=== PATIENT | male | born 1995 | race Caucasian/White ===

== ENCOUNTER 2022-11-01 13:36 | Emergency (ER) | payer MEDICAID ==
[~2022-11-01] VITALS: Ht 170.2 cm; Wt 98.0 kg
[2022-11-01 14:16] VITALS: TEMP 98; O2SAT 98
[2022-11-01] MEDS ORDERED: BENZ200C52 MT (17:52)
[2022-11-01 18:02] VITALS: BP 120/80; PULSE 78; RESP 20
== END 2022-11-01 18:28 | disposition home or self-care (01) ==
LOC: ER 13:36
DX: R05.9 Cough, unspecified (principal); Z86.73 Personal history of transient ischemic attack (TIA), and cerebral infarction without residual deficits
CPT/HCPCS: 71045; 99283

== ENCOUNTER 2022-11-03 03:33 | Emergency (ER) | payer BC, MEDICAID ==
[~2022-11-03] VITALS: Ht 170.2 cm; Wt 97.0 kg
[~2022-11-03 03:33] MED LIST: BENZ200C52 MT
[2022-11-03 03:37] VITALS: PULSE 77
[2022-11-03 03:38] VITALS: BP 149/96; RESP 18; TEMP 98.9; O2SAT 97
[2022-11-03 04:05] LABS: BASOPHILS % 0.5 % (0.0-2.0); EOSINOPHILS % 1.8 % (0.0-5.0); HEMATOCRIT. 40.7 % (42.0-52.0); LYMPHOCYTES % 29.1 % (20.0-50.0); MEAN CORPUSCULAR HEMOGLOBIN 28.7 pg (28.0-32.0); MEAN CORPUSCULAR HGB CONC 34.3 g/dL (31.0-37.0); MEAN CORPUSCULAR VOLUME 83.7 fL (80.0-94.0); MEAN PLATELET VOLUME 8.4 fl (7.4-10.4); MONOCYTES % 8.6 % (2.0-8.0); PLATELET 274 x1000/uL (130-400); RED BLOOD CELL COUNT 4.86 mill/uL (4.7-6.1); RED CELL DISTRIBUTION WIDTH 13.8 % (11.6-14.6); WHITE BLOOD COUNT 8.4 x1000/uL (4.5-11.0)
[2022-11-03 04:11] LABS: CHLORIDE 107 mEq/L (98-107); INDEX HEMOLYSI 1 (1-3); INDEX ICTERIC 1 (1-4); INDEX LIPEMIC 1 (1-3); POTASSIUM 3.6 mEq/L (3.5-5.1); SODIUM 138 mEq/L (136-145)
[2022-11-03 04:22] LABS: ALANINE AMINOTRANSFERASE 79 IU/L (13-61); ASPARTATE AMINOTRANSFERASE 30 IU/L (15-37); BILIRUBIN TOTAL 0.3 mg/dL (0.1-1.0); CALCIUM 8.8 mg/dL (8.5-10.1); CARBON DIOXIDE 25 mEq/L (21-32); CREATININE 0.8 mg/dL (0.6-1.3); GLUCOSE 109 mg/dL (70-105); PROTEIN TOTAL 8.1 g/dL (6.0-8.3); TROPONIN I HIGH SENSITIVITY 11 ng/L (<78); UREA NITROGEN BLOOD 15 mg/dL (7-21)
[2022-11-03 07:11] LABS: CLARITY URINE CLEAR (CLEAR); COLOR URINE YELLOW (YELLOW); GLUCOSE URINE NEGATIVE (NEGATIVE); KETONES URINE NEGATIVE (NEGATIVE); LEUKOCYTE ESTERASE URINE NEGATIVE (NEGATIVE); NITRITE URINE NEGATIVE (NEGATIVE); OCCULT BLOOD URINE NEGATIVE (NEGATIVE); PH URINE 5.5 (4.5-8.0); PROTEIN URINE NEGATIVE (NEGATIVE); SPECIFIC GRAVITY URINE 1.027 (1.005-1.030); UROBILINOGEN URINE 0.2 E.U./dL (0.2-1.0)
[2022-11-03] MEDS ORDERED: POLY119P2 MT (10:34)
[2022-11-03] MEDS ORDERED: NA P230E RC (10:34)
[2022-11-03] MEDS ORDERED: MOM MT (10:34)
[2022-11-03] MEDS ORDERED: IOHEXOL-350 100 ML BOTTLE ONE (11:12)
== END 2022-11-03 11:32 | disposition home or self-care (01) ==
LOC: ER 03:33
DX: R10.9 Unspecified abdominal pain (principal); Z87.01 Personal history of pneumonia (recurrent); Z86.73 Personal history of transient ischemic attack (TIA), and cerebral infarction without residual deficits
CPT/HCPCS: 99285; 74174; 71275; 71045; 80053; 81003; 85025; 84484; 36415; 93005; Q9967